=== PATIENT | male | born 1945 | race Caucasian/White ===

== ENCOUNTER → 2016-11-27 | Outpatient (CLI) | payer OTHER | LOC: MHCPAIN 10:39 | DX: G89.29 Other chronic pain (principal); M47.817 Spondylosis without myelopathy or radiculopathy, lumbosacral region; M53.3 Sacrococcygeal disorders, not elsewhere classified | CPT/HCPCS: G0463 ==

== ENCOUNTER 2017-01-17 07:47 | Day surgery (SDC) | payer MEDICARE, OTHER ==
[~2017-01-17] VITALS: Ht 177.8 cm; Wt 82.1 kg
[2017-01-17 09:11] VITALS: BP 135/86; PULSE 68; TEMP 98
[2017-01-17] MEDS ORDERED: PRILOSEC 20MG20 MG PO (09:23)
[2017-01-17] MEDS ORDERED: LIDEX OINT15GM TP (09:24)
[2017-01-17] MEDS ORDERED: FLOMAX 0.40.4 MG/CAP PO (09:25)
[2017-01-17] MEDS ORDERED: NAPROSYN500 MG PO (09:26)
[2017-01-17] MEDS ORDERED: MULTI VITAMINS1 TAB PO (09:26)
[2017-01-17 13:00] VITALS: BP 151/88; PULSE 77; TEMP 98.1
[2017-01-17 13:15] VITALS: BP 150/85; PULSE 75
[2017-01-17] MEDS ORDERED: COLACE 100100 MG/CAP PO (13:16)
[2017-01-17] MEDS ORDERED: NORCO 325 MG-51 TAB PO (13:17)
[2017-01-17] MEDS ORDERED: PYRIDIUM 100MG100 MG (13:18)
[2017-01-17 13:33] VITALS: BP 160/89; PULSE 76
== END 2017-01-17 14:00 | disposition home or self-care (01) ==
LOC: SDCO 07:47
DX: N20.1 Calculus of ureter (principal); K21.9 Gastro-esophageal reflux disease without esophagitis; Z85.038 Personal history of other malignant neoplasm of large intestine; E78.5 Hyperlipidemia, unspecified; R73.9 Hyperglycemia, unspecified; F17.210 Nicotine dependence, cigarettes, uncomplicated
CPT/HCPCS: C1769; C1894; C2617; J0360; J0690; J2270; J2405; J2704; J3010; J7120; Q9967

== ENCOUNTER 2017-01-29 09:49 | Inpatient (IN) | payer MEDICARE, OTHER ==
[~2017-01-29] VITALS: Ht 177.8 cm; Wt 79.5 kg
[~2017-01-29 09:49] MED LIST: COLACE 100100 MG/CAP PO; FLOMAX 0.40.4 MG/CAP PO; LIDEX OINT15GM TP; MULTI VITAMINS1 TAB PO; NORCO 325 MG-51 TAB PO; PRILOSEC 20MG20 MG PO; PYRIDIUM 100MG100 MG
[2017-02-05] VITALS (17 sets, daily range): BP systolic 113–155; BP diastolic 74–93; PULSE 75–100; TEMP 97.2–98.9
[2017-02-05] MEDS ORDERED: NAPROSYN500 MG PO (08:54)
[2017-02-06 01:03] VITALS: BP 119/75; PULSE 84; TEMP 98.5
[2017-02-06 04:48] VITALS: BP 126/75; PULSE 84; TEMP 98.7
[2017-02-06 07:21] LABS: MEAN CELL VOLUME 92 fl (80.0-100.0); MEAN CORPUSCULAR HGB CONC 33 g/dl (33.0-37.0); MEAN PLATELET VOLUME 8.9 fl (7.4-10.4); PLATELET COUNT 540 K/mm3 (130-400); WHITE BLOOD COUNT 12.9 K/mm3 (4.8-10.8)
[2017-02-06 07:24] LABS: HEMOGLOBIN 11.2 g/dl (13.5-18.0); MEAN CORPUSCULAR HEMOGLOBIN 30 pg (27.0-31.0)
[2017-02-06 07:37] LABS: CALCIUM 9.2 mg/dL (8.4-10.2); CREATININE, serum 1.13 mg/dL (0.66-1.25)
[2017-02-06 09:06] VITALS: BP 124/77; PULSE 71; TEMP 97
[2017-02-06 18:17] VITALS: BP 141/87; PULSE 72; TEMP 97.9
[2017-02-06 22:00] VITALS: BP 117/71; PULSE 82; TEMP 97.8
[2017-02-07 05:27] VITALS: BP 152/85; PULSE 77; TEMP 98.3
[2017-02-07 09:21] VITALS: BP 135/75; PULSE 67; TEMP 98.1
[2017-02-07 14:32] VITALS: BP 141/90; PULSE 88; TEMP 97.3
== END 2017-02-07 15:45 | disposition home or self-care (01) | DRG 661 ==
LOC: INPTSU 02-05 08:18 → SURG 02-05 10:30
PROVIDERS: Urology
PROC: 0T774DZ Dilation of Left Ureter with Intraluminal Device, Percutaneous Endoscopic Approach (ICD-10-PCS; 2017-02-05)
PROC: 0TC44ZZ Extirpation of Matter from Left Kidney Pelvis, Percutaneous Endoscopic Approach (ICD-10-PCS; principal; 2017-02-05 14:15)
DX: N20.0 Calculus of kidney (principal); N20.1 Calculus of ureter; N40.1 Benign prostatic hyperplasia with lower urinary tract symptoms; R39.12 Poor urinary stream; Z85.030 Personal history of malignant carcinoid tumor of large intestine; F17.210 Nicotine dependence, cigarettes, uncomplicated
CPT/HCPCS: A9284; C1726; C1758; C1769; C1894; C2617; J0690; J1100; J2250; J2405; J2704; J3010; J7120; Q9967

== ENCOUNTER → 2021-07-31 | Outpatient (CLI) | payer MEDICARE, OTHER ==
[~2021-07-31] MED LIST changes: +NAPROSYN500 MG PO
== END ==
LOC: COL.RAD 11:07
DX: N28.1 Cyst of kidney, acquired (principal); N32.9 Bladder disorder, unspecified